=== PATIENT | male | born 1975 | race Two or more races ===

== ENCOUNTER 2024-10-26 11:15 | Emergency (ER) | payer SELFPAY ==
[2024-10-26 11:16] VITALS: BMI 30.4
[2024-10-26 11:40] VITALS: BP 143/82; PULSE 74; RESP 18; TEMP 36.8; O2SAT 99
--- NOTE | 2024-10-26 11:51 | PD.EDDENTL ---
ED Dental RME/HPI General Chief complaint: Dental/Oral/Throat Stated complaint: THROAT PAIN AND SWELLING WITH RUNNY NOSE, SENT BY Time Seen by Provider: 10/26/24 11:24 Arrival date/time: 10/26/24 11:15 RME / HPI RME / HPI Narrative: 49-year-old male patient came in for evaluation regarding sore throat. This been ongoing for the last few days, described as dull ache, severity moderate. Patient denies any drooling denies any changes in the voice, denies any fever denies any difficulty swallowing. Patient was seen by PCP and was referred to us for further evaluation. Related Data Previous Rx's ?Medication ?Instructions ?Recorded ibuprofen 800 mg tablet 800 mg PO TID PRN pain #30 tabs 05/14/21 polyethylene glycol 3350 17 gram 17 g PO BID PRN constipation #14 ea 05/14/21 oral powder packet (Miralax) ibuprofen 800 mg tablet 800 mg PO TID PRN pain #30 tabs 08/25/21 amoxicillin 875 mg-potassium 1 tab PO BID #14 tabs 10/26/24 clavulanate 125 mg tablet dexamethasone 6 mg tablet 6 mg PO QDAY #7 tabs 10/26/24 ibuprofen 800 mg tablet 800 mg PO TID PRN pain #30 tabs 10/26/24 Allergies Allergy/AdvReac Type Severity Reaction Status Date / Time No Known Allergies Allergy Verified 10/26/24 11:18 Review of Systems Review of Systems Narrative Review of Systems: Review of system reviewed and within normal limits except mentioned in HPI ED Exam Narrative Physical exam: VITAL SIGNS: Reviewed. GENERAL APPEARANCE: Alert and interactive, follows commands, no acute distress, HEAD AND FACE: Non-traumatic. ENT: PERRL, pink conjunctivitis, eyelid no trauma, Mucous membrane moist., Tonsils erythematous no exudates uvula in the midline, peritonsillar area no swelling NECK: Supple, nontender, no nuchal rigidity. CHEST: No tenderness, no crepitus, no paradoxical movement, no retractions. LUNGS: Clear, well ventilated, symmetric, no rales, no wheezing, no ronchi, no stridor, good breath sounds bilaterally. HEART: Regular rate, regular rhythm, no murmur, no gallops. ABDOMEN: Soft, positive bowel sounds, nondistended, no guarding, nontender, no rebound, no masses, RECTAL: Deferred. GENITAL: Deferred. NEUROLOGICAL: Gross motor function intact sensory function intact, Appropriate for age. MUSCULOSKELETAL: low back nontender, full range of motion. EXTREMITIES: Nontender, full range of motion. SKIN: Color pink, dry, no rash, no lacerations, no abrasions, no contusions. LYMPHATICS: Deferred. Course Quality Measures none Vital Signs Vital signs: Vital Signs Temperature 98.3 F 10/26/24 11:40 Pulse Rate 74 10/26/24 11:40 Respiratory Rate 18 10/26/24 11:40 Blood Pressure 143/82 H 10/26/24 11:40 Pulse Oximetry (%) 99 10/26/24 11:40 Dental / Oral MDM Narrative MDM Narrative:: 49-year-old male patient came in for evaluation regarding sore throat. This been ongoing for the last few days, described as dull ache, severity moderate. Patient denies any drooling denies any changes in the voice, denies any fever denies any difficulty swallowing. Patient was seen by PCP and was referred to us for further evaluation. Imaging workup for status this time, I do not believe patient is having peritonsillar abscess, patient is having tonsillitis Patient data External records reviewed:: None Clinical information provided by:: patient Social determinants that could affect healthcare access:: none Patient has the following chronic illnesses:: None How is presenting disease/condition affected by chronic disease/condition?: no chronic disease Evaluation data The following diagnostics were reviewed and interpreted by me:: other (specify) Lab and/or radiology exams considered but not ordered:: None Interpretation Summary: None Medications / Prescriptions Medications or Prescriptions considered but not ordered:: None Medication administrations:: None Consultations Consultation(s) initiated? (list below): No Diagnosis Dental Differential Diagnosis: gingival abscess and other (Tonsillitis,. Peritonsillar abscess) Most likely diagnosis given after review of the tests above:: Tonsillitis Admission Indicated Admission indicated?: not indicated Admission Request Was there a request for admission?: No Disposition Plan Disposition Plan: Discharge Discharge Attestation Discharge Attestation: The patient was given an opportunity to ask questions and understood the discharge instructions. Discharge instructions specifically effects, indications for sooner follow up or return to the emergency department, and the expected course of current diagnosis. Patient condition: Stable Discharge Plan Plan Patient Disposition: HOME (Self Care) Discharge Disposition comment: Stable Prescriptions/Referrals Prescriptions/Med Rec: New amoxicillin-pot clavulanate 875-125 mg tablet 1 tab PO BID Qty: 14 0RF dexamethasone 6 mg tablet 6 mg PO QDAY Qty: 7 0RF ibuprofen 800 mg tablet 800 mg PO TID PRN (Reason: pain) Qty: 30 0RF No Action ibuprofen 800 mg tablet 800 mg PO TID PRN (Reason: pain) Qty: 30 0RF polyethylene glycol 3350 [Miralax] 17 gram powder in packet 17 g PO BID PRN (Reason: constipation) Qty: 14 0RF ibuprofen 800 mg tablet 800 mg PO TID PRN (Reason: pain) Qty: 30 0RF Problem List Clinical Impression: Acute tonsillitis Patient/Caregiver Discharge Instructions Education Materials: Tonsillitis in Adults Additional Instructions: Thank you for the opportunity for serving you today. You are stable for discharged . You are advised to: Follow-up with your PCP in 1 to 2 days Return to ED for worsening of symptoms Increase oral fluids Take medication as prescribed Print Language: Croatian Stand Alone Forms: Rocio Award Info., Patient Portal Info Letter PA/SLIPPER MAKER Supervising Physician PA/SLIPPER MAKER Supervising Physician: MD Rey
== END 2024-10-26 12:14 | disposition home or self-care (01) ==
LOC: SERX 12:38
PROVIDERS: Emergency Provider Emergency Medicine
DX: J03.90 Acute tonsillitis, unspecified (principal)
CPT/HCPCS: 99281